=== PATIENT | female | born 1995 | race Asian ===

== ENCOUNTER 2017-04-25 13:47 | Emergency (ER) | payer OTHER ==
[~2017-04-25] VITALS: Ht 161.3 cm; Wt 62.6 kg
[2017-04-25 13:49] VITALS: BP 113/76
== END 2017-04-25 15:15 | disposition home or self-care (01) ==
LOC: ED 15:09
DX: S66.911A Strain of unspecified muscle, fascia and tendon at wrist and hand level, right hand, initial encounter (principal); X50.3XXA Overexertion from repetitive movements, initial encounter; Y93.89 Activity, other specified; Y92.39 Other specified sports and athletic area as the place of occurrence of the external cause; Y99.8 Other external cause status
CPT/HCPCS: 99284